=== PATIENT | female | born 1960 | race Caucasian/White ===

== ENCOUNTER 2016-03-27 15:46 | Observation (INO) ==
[2016-03-27] MEDS ORDERED: *HR* Adenosine 6 MG/2 ML VIAL IVP ONE (16:03)
[2016-03-27] MEDS ORDERED: 0.9 % Sodium Chloride 1,000 ML IV ONE (16:03)
[2016-03-27 16:36] LABS: Bilirubin,Urine Negative (Negative); Blood,Urine Negative (Negative); Clarity,Urine Clear (Clear); Color,Urine Yellow (Yellow); Glucose,Urine (UA) Normal (Normal); Ketones,Urine Negative (Negative); Leukocyte Esterase,Urine Negative (Negative); Nitrite,Urine Negative (Negative); PH,Urine 6.5 pH Units (5.0-8.0); Protein,Urine Negative (Neg-Trace); Specific Gravity,Urine 1.005 (1.010-1.025); Urobilinogen,Urine Normal (Normal)
[2016-03-27 16:39] LABS: Basophils % 0.3 %; Eosinophils # 0.1 K/mcL (0.0-0.6); Hematocrit 47.9 % (35.3-44.9); Hemoglobin 15.5 g/dL (11.5-15.4); Immature Granulocytes % 0.6 % (0-4); Lymphocytes % 30.7 %; Mean Corpuscular HGB Conc 32.4 g/dL (31.6-35.5); Mean Corpuscular Hemoglobin 29.2 pg (28.0-33.3); Mean Corpuscular Volume 90.2 fL (83.0-100.0); Mean Platelet Volume 11.7 fL (9.4-12.4); Monocytes # 0.7 K/mcL (0.0-1.3); Monocytes % 6.8 %; Neutrophils # 5.9 K/mcL (1.6-8.9); Platelet Count 264 K/mcL (140-400); Red Blood Count 5.31 M/mcL (3.82-4.97); Red Cell Distribution Width 13.3 % (11.5-14.5); Segmented Neutrophils % 60.6 %
[2016-03-27 16:39] LABS: Amphetamine Screen,Urine Negative ng/mL (Cutoff=1000); Barbiturate Screen,Urine Negative ng/mL (Cutoff=200); Benzodiazepines Screen,Urine Negative ng/mL (Cutoff=200); Cannabinoid Screen,Urine Negative ng/mL (Cutoff = 50); Cocaine Screen,Urine Negative ng/mL (Cutoff= 300); Opiate Screen,Urine Negative ng/mL (Cutoff=300); Phencyclidine Screen,Urine Negative ng/mL (Cutoff=25)
[2016-03-27 16:48] LABS: BUN/Creatinine Ratio 19 (6-26); Blood Urea Nitrogen 14 mg/dL (7-20); Calcium 9.3 mg/dL (8.6-10.8); Carbon Dioxide 24 mEq/L (19-29); Chloride 113 mEq/L (98-109); Glucose 81 mg/dL (70-99); INR 1.1; Osmolality,Calculated 298 (280-300); Potassium 3.7 mEq/L (3.5-4.5); Prothrombin Time 12.4 Seconds (9.4-12.1); Sodium 144 mEq/L (136-145); eGFR For African Americans > 60 (> 60); eGFR For Non-African Americans > 60 (> 60)
[2016-03-27 17:11] LABS: Thyroid Stimulating Hormone 1.467 mcIU/mL (0.350-4.840)
--- NOTE | 2016-03-27 18:45 | Emergency Department Note ---
Disposition Clinical Impression: Supraventricular tachycardia Disposition: Home, Self-Care Condition: Good Instructions: Supraventricular Tachycardia (ED) Prescriptions: Metoprolol XL (24 HR) Succ [Toprol XL] 25 mg PO DAILY #14 tab.er.24h Referrals: Yumiko Bowers DO [Partnered Physician] - (call for appointment tomorrow morning for later in the week.) Forms: ED Satisfaction Letter Arrhythmia/Palpitations HPI - General Chief Complaint: ED Arrhythmia/Palpitations Stated Complaint: SVT Time Seen by Provider: 03/27/16 16:01 Source: patient, EMS Limitations: no limitations Nursing Notes Reviewed: Yes Vital Signs Reviewed: Yes - History of Present Illness HPI Narrative: Patient brought in by EMS for evaluation of heart rate of 200. Patient was at [facility] walking around when she had sudden onset palpitations and shortness of breath. Patient has a history of COPD and previous lung cancer that underwent resection in 2013. Patient has been asymptomatic until initial onset of symptoms. Patient has never had anything like this before and has no family history of abnormal heart rhythms. When patient arrived she was alert and oriented 3 able to handle conversations appropriately. Patient did complain of tiredness and shortness of breath. Patient denied chest pain or other review of systems. - Related Data Previous Rx's Medication Instructions Recorded Amoxicillin/Clavulanate [Augmentin] 875 mg PO BIDWM 5 Days 06/04/15 Metoprolol XL (24 HR) Succ [Toprol 25 mg PO DAILY #14 tab.er.24h 03/27/16 XL] Allergies Allergy/AdvReac Type Severity Reaction Status Date / Time Erythromycin Base AdvReac Rash Verified 11/14/14 09:44 All systems ED: reviewed and negative except as stated. Constitutional: Reports: weakness. Denies: fever, chills Eyes: Denies: eye pain ENT ED: Denies: congestion Cardiovascular: Reports: palpitations, dyspnea on exertion. Denies: chest pain , syncope Respiratory: Denies: cough, dyspnea Gastrointestinal: Denies: abdominal pain, nausea, vomiting Genitourinary: Denies: urgency, dysuria Musculoskeletal: Denies: back pain Integumentary: Denies: rash, abrasion Neurological: Denies: headache Psychiatric: Reports: anxiety Endocrine: Reports: fatigue Past Medical History - Past Medical History Medical history: Reports: no medical history, cancer, COPD, other Surgical history: Reports: cholecystectomy, hysterectomy, other Psychiatric history: Reports: no psych history - Social History Smoking Status: Former smoker Smokeless Tobacco Status: No Alcohol use: Reports: none Drug use: Reports: none Physical Exam - General Limitations: no limitations General appearance: alert - Head Head exam: atraumatic, normocephalic, normal inspection - Eye Eye exam: Present: normal appearance - ENT ENT exam: normal exam - Neck Neck exam: Present: normal inspection - Chest Chest inspection: Present: normal inspection, symmetric chest wall rise. Absent : tenderness - Respiratory Respiratory exam: Present: normal lung sounds bilaterally. Absent: respiratory distress - Cardiovascular Cardiovascular exam: Present: tachycardia, other (SVT) - Abdominal Exam Abdominal exam: Present: soft, Non-Tender. Absent: tenderness, distention, guarding, rebound, rigidity - Extremities Exam Extremities exam: Present: normal inspection - Back Exam Back exam: Present: normal inspection. Absent: tenderness - Neurological Exam Neurological exam: Present: alert, oriented X3, CN II-XII intact - Psychiatric Psychiatric exam: Present: normal affect, normal mood Course - Reevaluation(s) Reevaluation #1: Patient converted with 12 of adenosine as initial dose. Patient received fluids for tachycardia. Lab workup negative at this time. Patient states she just feels tired but otherwise feels back to normal with no palpitations. No shortness of breath no chest pain. Discussed with cardiology Dr. Bowers. Patient will be a follow-up later this week for outpatient evaluation if repeat troponin is negative. To receive Toprol 25 mg daily as a home medication f blood pressure tolerates. Reevaluation #2: Patient signed out to night team. Pending a negative repeat troponin patient's follow-up with cardiology and prescription are printed and available. If patient has a positive troponin the patient will be admitted to the hospitalist service for further workup per cardiology. - Consultations Consultation #1: Discussed with cardiology Dr. Bowers. Patient will be a follow-up later this week for outpatient evaluation if repeat troponin is negative. To receive Toprol 25 mg daily as a home medication f blood pressure tolerates. Vital Signs Temperature 97.3 F L 03/27/16 15:48 Pulse Rate 202 03/27/16 15:48 Respiratory Rate 18 03/27/16 15:48 Blood Pressure 88/60 03/27/16 15:48 O2 Sat by Pulse Oximetry 100 03/27/16 15:48 Temperature 97.3 F L 03/27/16 15:48 Pulse Rate 97 03/27/16 18:00 Respiratory Rate 18 03/27/16 18:00 Blood Pressure 127/87 03/27/16 18:00 O2 Sat by Pulse Oximetry 98 03/27/16 18:00 Oxygen Delivery Oxygen Delivery Room Air Arrhythmia/Palpitations - Medical Records Medical records reviewed: Yes I reviewed the patient's medical records. - Lab Data Lab results reviewed: Yes I reviewed the patient's lab results. Result diagrams: 03/27/16 16:30 03/27/16 16:30 Lab Results 03/27/16 03/27/16 03/27/16 Range/Units 16:10 16:10 16:30 WBC 9.8 (4.3-11.1) K/mcL RBC 5.31 H (3.82-4.97) M/mcL Hgb 15.5 H (11.5-15.4) g/dL Hct 47.9 H (35.3-44.9) % MCV 90.2 (83.0-100.0) fL MCH 29.2 (28.0-33.3) pg MCHC 32.4 (31.6-35.5) g/dL RDW 13.3 (11.5-14.5) % Plt Count 264 (140-400) K/mcL MPV 11.7 (9.4-12.4) fL Immature Gran % 0.6 (0-4) % Seg Neutrophils % 60.6 % Lymphocytes % 30.7 % Monocytes % 6.8 % Eosinophils % 1.0 % Basophils % 0.3 % Neutrophils # 5.9 (1.6-8.9) K/mcL Lymphocytes # 3.0 (0.6-4.6) K/mcL Monocytes # 0.7 (0.0-1.3) K/mcL Eosinophils # 0.1 (0.0-0.6) K/mcL Basophils # 0.0 (0.0-0.2) K/mcL PT (9.4-12.1) Seconds INR D-Dimer (0-500) ng/mLFEU Sodium (136-145) mEq/L Potassium (3.5-4.5) mEq/L Chloride (98-109) mEq/L Carbon Dioxide (19-29) mEq/L BUN (7-20) mg/dL Creatinine (0.57-1.11) mg/dL Est GFR ( Amer) (> 60) Est GFR (Non-Af Amer) (> 60) BUN/Creatinine Ratio (6-26) Glucose (70-99) mg/dL Calculated Osmolality (280-300) Calcium (8.6-10.8) mg/dL Troponin I (0-0.03) ng/mL TSH (0.350-4.840) mcIU/mL Urine Color Yellow (Yellow) Urine Clarity Clear (Clear) Urine pH 6.5 (5.0-8.0) pH Units Ur Specific [place] 1.005 L (1.010-1.025) Urine Protein Negative (Neg-Trace) mg/dL Urine Glucose (UA) Normal (Normal) mg/dL Urine Ketones Negative (Negative) mg/dL Urine Blood Negative (Negative) Urine Nitrite Negative (Negative) Urine Bilirubin Negative (Negative) Urine Urobilinogen Normal (Normal) mg/dL Ur Leukocyte Esterase Negative (Negative) Ur Culture Indicated? NO (NO) Urine Opiates Screen Negative (Tyivvr=825) ng/mL Ur Barbiturates Screen Negative (Gzzrkv=491) ng/mL Ur Phencyclidine Scrn Negative (Cutoff=25) ng/mL Ur Amphetamines Screen Negative (Egjgla=5787) ng/mL U Benzodiazepines Scrn Negative (Jjpgbg=992) ng/mL Urine Cocaine Screen Negative (Cutoff= 300) ng/mL U Marijuana (THC) Screen Negative (Cutoff = 50) ng/mL 03/27/16 03/27/16 03/27/16 Range/Units 16:30 16:30 16:30 WBC (4.3-11.1) K/mcL RBC (3.82-4.97) M/mcL Hgb (11.5-15.4) g/dL Hct (35.3-44.9) % MCV (83.0-100.0) fL MCH (28.0-33.3) pg MCHC (31.6-35.5) g/dL RDW (11.5-14.5) % Plt Count (140-400) K/mcL MPV (9.4-12.4) fL Immature Gran % (0-4) % Seg Neutrophils % % Lymphocytes % % Monocytes % % Eosinophils % % Basophils % % Neutrophils # (1.6-8.9) K/mcL Lymphocytes # (0.6-4.6) K/mcL Monocytes # (0.0-1.3) K/mcL Eosinophils # (0.0-0.6) K/mcL Basophils # (0.0-0.2) K/mcL PT 12.4 H (9.4-12.1) Seconds INR 1.1 D-Dimer 345 (0-500) ng/mLFEU Sodium 144 (136-145) mEq/L Potassium 3.7 (3.5-4.5) mEq/L Chloride 113 H (98-109) mEq/L Carbon Dioxide 24 (19-29) mEq/L BUN 14 (7-20) mg/dL Creatinine 0.72 (0.57-1.11) mg/dL Est GFR ( Amer) > 60 (> 60) Est GFR (Non-Af Amer) > 60 (> 60) BUN/Creatinine Ratio 19 (6-26) Glucose 81 (70-99) mg/dL Calculated Osmolality 298 (280-300) Calcium 9.3 (8.6-10.8) mg/dL Troponin I 0.01 (0-0.03) ng/mL TSH 1.467 (0.350-4.840) mcIU/mL Urine Color (Yellow) Urine Clarity (Clear) Urine pH (5.0-8.0) pH Units Ur Specific [place] (1.010-1.025) Urine Protein (Neg-Trace) mg/dL Urine Glucose (UA) (Normal) mg/dL Urine Ketones (Negative) mg/dL Urine Blood (Negative) Urine Nitrite (Negative) Urine Bilirubin (Negative) Urine Urobilinogen (Normal) mg/dL Ur Leukocyte Esterase (Negative) Ur Culture Indicated? (NO) Urine Opiates Screen (Jdxcfd=855) ng/mL Ur Barbiturates Screen (Tgxhnz=623) ng/mL Ur Phencyclidine Scrn (Cutoff=25) ng/mL Ur Amphetamines Screen (Gwugyx=6327) ng/mL U Benzodiazepines Scrn (Kjbnhr=449) ng/mL Urine Cocaine Screen (Cutoff= 300) ng/mL U Marijuana (THC) Screen (Cutoff = 50) ng/mL - Radiology Data Radiology results reviewed: Yes I reviewed the patient's radiology results. - EKG Data EKG attestation: Yes I reviewed and interpreted this EKG. EKG results narrative: Initial EKG #1 shows supraventricular tachycardia at a rate of 198 bpm. QRS 85. QTC 3-4. Patient has depressions in the anterior leads. EKG #2 after 12 adenosine shows sinus tachycardia with ventricular rate of 108. [place] 163. QRS 84. QTC 388. Patient has no ST elevations or depressions.
--- NOTE | 2016-03-27 18:46 | Emergency Department Note ---
Disposition Clinical Impression: Supraventricular tachycardia Disposition: Admitted As Inpatient Condition: Good General Adult HPI - General Chief complaint: ED Arrhythmia/Palpitations Stated complaint: SVT Time Seen by Provider: 03/27/16 16:01 Source: patient, EMS Limitations: no limitations - History of Present Illness Pain Scale: 0 - Related Data Previous Rx's Medication Instructions Recorded Diltiazem CD (24hr) [Cardizem CD] 120 mg PO DAILY #30 cap.er.24h 03/28/16 Allergies Allergy/AdvReac Type Severity Reaction Status Date / Time Erythromycin Base Allergy Rash Verified 03/27/16 21:14 Past Medical History - Past Medical History Medical history: Reports: no medical history, cancer, COPD, other Surgical history: Reports: cholecystectomy, hysterectomy, other Psychiatric history: Reports: no psych history - Social History Smoking Status: Former smoker Smokeless Tobacco Status: No Alcohol use: Reports: none Drug use: Reports: none Physical Exam - General Limitations: no limitations General appearance: alert Course - Reevaluation(s) Reevaluation #1: I saw the patient with the resident, Dr. Mac. The patient was brought in by squad for an abrupt onset of rapid heart rate 45 minutes prior to arrival to the department. The squad had sent an EKG which we saw was SVT at a rate of 200. It was narrow complex. On arrival the patient maintained at high heart rate. We had an IV which was challenging but successful. 12 Identicard was given after Valsalva maneuvers failed. Patient broke and was in sinus rhythm. Heart rate was still tachycardic but eventually came back down to a normal rate as well as normal rhythm. Lab workup was negative. D-dimer was negative. This also history for SVT without other significant cause. We talked with cardiology and the plan is to repeat the troponin. Troponin is negative then the patient will be discharged to home. If is positive then she will need to be admitted. At this point is the end of our shift so would be turning the case over to the night physician to make that disposition based on the troponin result. She is absolutely stable at this point. Time: 18:46 Vital Signs Temperature 97.3 F L 03/27/16 15:48 Pulse Rate 202 03/27/16 15:48 Respiratory Rate 18 03/27/16 15:48 Blood Pressure 88/60 01/02/17 15:48 O2 Sat by Pulse Oximetry 100 03/27/16 15:48 Temperature 97.8 F 03/28/16 11:11 Pulse Rate 87 03/28/16 11:11 Respiratory Rate 18 03/28/16 11:11 Blood Pressure 143/52 03/28/16 11:11 O2 Sat by Pulse Oximetry 95 03/28/16 11:11 Oxygen Delivery Oxygen Delivery Room Air Medical Decision Making - Lab Data Result diagrams: 03/28/16 01:00 03/28/16 01:00 Lab Results 03/27/16 03/27/16 03/27/16 Range/Units 16:10 16:10 16:30 WBC 9.8 (4.3-11.1) K/mcL RBC 5.31 H (3.82-4.97) M/mcL Hgb 15.5 H (11.5-15.4) g/dL Hct 47.9 H (35.3-44.9) % MCV 90.2 (83.0-100.0) fL MCH 29.2 (28.0-33.3) pg MCHC 32.4 (31.6-35.5) g/dL RDW 13.3 (11.5-14.5) % Plt Count 264 (140-400) K/mcL MPV 11.7 (9.4-12.4) fL Immature Gran % 0.6 (0-4) % Seg Neutrophils % 60.6 % Lymphocytes % 30.7 % Monocytes % 6.8 % Eosinophils % 1.0 % Basophils % 0.3 % Neutrophils # 5.9 (1.6-8.9) K/mcL Lymphocytes # 3.0 (0.6-4.6) K/mcL Monocytes # 0.7 (0.0-1.3) K/mcL Eosinophils # 0.1 (0.0-0.6) K/mcL Basophils # 0.0 (0.0-0.2) K/mcL PT (9.4-12.1) Seconds INR D-Dimer (0-500) ng/mLFEU Sodium (136-145) mEq/L Potassium (3.5-4.5) mEq/L Chloride (98-109) mEq/L Carbon Dioxide (19-29) mEq/L BUN (7-20) mg/dL Creatinine (0.57-1.11) mg/dL Est GFR ( Amer) (> 60) Est GFR (Non-Af Amer) (> 60) BUN/Creatinine Ratio (6-26) Glucose (70-99) mg/dL Calculated Osmolality (280-300) Calcium (8.6-10.8) mg/dL Troponin I (0-0.03) ng/mL TSH (0.350-4.840) mcIU/mL Urine Color Yellow (Yellow) Urine Clarity Clear (Clear) Urine pH 6.5 (5.0-8.0) pH Units Ur Specific [place] 1.005 L (1.010-1.025) Urine Protein Negative (Neg-Trace) mg/dL Urine Glucose (UA) Normal (Normal) mg/dL Urine Ketones Negative (Negative) mg/dL Urine Blood Negative (Negative) Urine Nitrite Negative (Negative) Urine Bilirubin Negative (Negative) Urine Urobilinogen Normal (Normal) mg/dL Ur Leukocyte Esterase Negative (Negative) Ur Culture Indicated? NO (NO) Urine Opiates Screen Negative (Qlacwe=116) ng/mL Ur Barbiturates Screen Negative (Nqcewo=013) ng/mL Ur Phencyclidine Scrn Negative (Cutoff=25) ng/mL Ur Amphetamines Screen Negative (Aikmgt=6034) ng/mL U Benzodiazepines Scrn Negative (Qocmou=266) ng/mL Urine Cocaine Screen Negative (Cutoff= 300) ng/mL U Marijuana (THC) Screen Negative (Cutoff = 50) ng/mL 03/27/16 03/27/16 03/27/16 Range/Units 16:30 16:30 16:30 WBC (4.3-11.1) K/mcL RBC (3.82-4.97) M/mcL Hgb (11.5-15.4) g/dL Hct (35.3-44.9) % MCV (83.0-100.0) fL MCH (28.0-33.3) pg MCHC (31.6-35.5) g/dL RDW (11.5-14.5) % Plt Count (140-400) K/mcL MPV (9.4-12.4) fL Immature Gran % (0-4) % Seg Neutrophils % % Lymphocytes % % Monocytes % % Eosinophils % % Basophils % % Neutrophils # (1.6-8.9) K/mcL Lymphocytes # (0.6-4.6) K/mcL Monocytes # (0.0-1.3) K/mcL Eosinophils # (0.0-0.6) K/mcL Basophils # (0.0-0.2) K/mcL PT 12.4 H (9.4-12.1) Seconds INR 1.1 D-Dimer 345 (0-500) ng/mLFEU Sodium 144 (136-145) mEq/L Potassium 3.7 (3.5-4.5) mEq/L Chloride 113 H (98-109) mEq/L Carbon Dioxide 24 (19-29) mEq/L BUN 14 (7-20) mg/dL Creatinine 0.72 (0.57-1.11) mg/dL Est GFR ( Amer) > 60 (> 60) Est GFR (Non-Af Amer) > 60 (> 60) BUN/Creatinine Ratio 19 (6-26) Glucose 81 (70-99) mg/dL Calculated Osmolality 298 (280-300) Calcium 9.3 (8.6-10.8) mg/dL Troponin I 0.01 (0-0.03) ng/mL TSH 1.467 (0.350-4.840) mcIU/mL Urine Color (Yellow) Urine Clarity (Clear) Urine pH (5.0-8.0) pH Units Ur Specific [place] (1.010-1.025) Urine Protein (Neg-Trace) mg/dL Urine Glucose (UA) (Normal) mg/dL Urine Ketones (Negative) mg/dL Urine Blood (Negative) Urine Nitrite (Negative) Urine Bilirubin (Negative) Urine Urobilinogen (Normal) mg/dL Ur Leukocyte Esterase (Negative) Ur Culture Indicated? (NO) Urine Opiates Screen (Lbacjx=028) ng/mL Ur Barbiturates Screen (Qxevov=099) ng/mL Ur Phencyclidine Scrn (Cutoff=25) ng/mL Ur Amphetamines Screen (Kcmwbs=3898) ng/mL U Benzodiazepines Scrn (Aodrdl=944) ng/mL Urine Cocaine Screen (Cutoff= 300) ng/mL U Marijuana (THC) Screen (Cutoff = 50) ng/mL 03/27/16 Range/Units 19:49 WBC (4.3-11.1) K/mcL RBC (3.82-4.97) M/mcL Hgb (11.5-15.4) g/dL Hct (35.3-44.9) % MCV (83.0-100.0) fL MCH (28.0-33.3) pg MCHC (31.6-35.5) g/dL RDW (11.5-14.5) % Plt Count (140-400) K/mcL MPV (9.4-12.4) fL Immature Gran % (0-4) % Seg Neutrophils % % Lymphocytes % % Monocytes % % Eosinophils % % Basophils % % Neutrophils # (1.6-8.9) K/mcL Lymphocytes # (0.6-4.6) K/mcL Monocytes # (0.0-1.3) K/mcL Eosinophils # (0.0-0.6) K/mcL Basophils # (0.0-0.2) K/mcL PT (9.4-12.1) Seconds INR D-Dimer (0-500) ng/mLFEU Sodium (136-145) mEq/L Potassium (3.5-4.5) mEq/L Chloride (98-109) mEq/L Carbon Dioxide (19-29) mEq/L BUN (7-20) mg/dL Creatinine (0.57-1.11) mg/dL Est GFR ( Amer) (> 60) Est GFR (Non-Af Amer) (> 60) BUN/Creatinine Ratio (6-26) Glucose (70-99) mg/dL Calculated Osmolality (280-300) Calcium (8.6-10.8) mg/dL Troponin I 0.04 H* (0-0.03) ng/mL TSH (0.350-4.840) mcIU/mL Urine Color (Yellow) Urine Clarity (Clear) Urine pH (5.0-8.0) pH Units Ur Specific [place] (1.010-1.025) Urine Protein (Neg-Trace) mg/dL Urine Glucose (UA) (Normal) mg/dL Urine Ketones (Negative) mg/dL Urine Blood (Negative) Urine Nitrite (Negative) Urine Bilirubin (Negative) Urine Urobilinogen (Normal) mg/dL Ur Leukocyte Esterase (Negative) Ur Culture Indicated? (NO) Urine Opiates Screen (Bbihhg=132) ng/mL Ur Barbiturates Screen (Wchytn=108) ng/mL Ur Phencyclidine Scrn (Cutoff=25) ng/mL Ur Amphetamines Screen (Vhdspg=4460) ng/mL U Benzodiazepines Scrn (Tlghsu=411) ng/mL Urine Cocaine Screen (Cutoff= 300) ng/mL U Marijuana (THC) Screen (Cutoff = 50) ng/mL Attestation Statement - Attestation Attestation: I , Dr. Murdock, examined this patient face to face and my medical decision- making was reviewed with Dr. Mac, Resident Physician. I agree with the documented findings, disposition and treatment plan as described except to the extent set forth below. Please see my progress notes for details.
--- NOTE | 2016-03-27 20:34 | Emergency Department Note ---
Disposition Clinical Impression: Supraventricular tachycardia Disposition: Admitted As Inpatient Condition: Good Time of Disposition: 21:02 Arrhythmia/Palpitations HPI - General Chief Complaint: ED Arrhythmia/Palpitations Stated Complaint: SVT Time Seen by Provider: 03/27/16 16:01 Source: patient, EMS Limitations: no limitations Nursing Notes Reviewed: Yes Vital Signs Reviewed: Yes - Related Data Home Medications Medication Instructions Recorded Confirmed No Known Home Drugs 03/27/16 03/27/16 Allergies Allergy/AdvReac Type Severity Reaction Status Date / Time Erythromycin Base Allergy Rash Verified 03/27/16 21:14 Constitutional: Reports: weakness. Denies: fever, chills Eyes: Denies: eye pain ENT ED: Denies: congestion Cardiovascular: Reports: palpitations, dyspnea on exertion. Denies: chest pain , syncope Respiratory: Denies: cough, dyspnea Gastrointestinal: Denies: abdominal pain, nausea, vomiting Genitourinary: Denies: urgency, dysuria Musculoskeletal: Denies: back pain Integumentary: Denies: rash, abrasion Neurological: Denies: headache Psychiatric: Reports: anxiety Endocrine: Reports: fatigue Past Medical History - Past Medical History Medical history: Reports: no medical history, cancer, COPD, other Surgical history: Reports: cholecystectomy, hysterectomy, other Psychiatric history: Reports: no psych history - Social History Smoking Status: Former smoker Smokeless Tobacco Status: No Alcohol use: Reports: none Drug use: Reports: none Physical Exam - General Limitations: no limitations General appearance: alert Course - Consultations Consultation #1: Carolin ECHEVARRIA admitting Pt in stable condition. Time: 20:53 Vital Signs Temperature 97.3 F L 03/27/16 15:48 Pulse Rate 202 03/27/16 15:48 Respiratory Rate 18 03/27/16 15:48 Blood Pressure 88/60 03/27/16 15:48 O2 Sat by Pulse Oximetry 100 03/27/16 15:48 Temperature 97.4 F L 03/28/16 03:29 Pulse Rate 80 03/28/16 03:29 Respiratory Rate 15 03/28/16 03:29 Blood Pressure 127/79 03/28/16 03:29 O2 Sat by Pulse Oximetry 97 03/28/16 03:29 Oxygen Delivery Oxygen Delivery Room Air Arrhythmia/Palpitations - MDM Narrative Medical decision making narrative: Patient was signed out to me by Dr. Mac. She was initially seen in the emergency department for SVT in the over 200 range. She was successfully converted with 12 mg of Adenocard. Patient states that her symptoms started after she got to her car after she was shopping at [employer]. She then went to her primary care physician because she had an appointment. She was then transferred to the emergency room by linda. Patient is resting comfortably in bed at this time. She is denying any chest pain. However she did have an episode of chest pain while she has been here. She states that it was a pressure on the right side of her chest that quickly resolved. She states it lasted less than 1 minute. She was drinking hot chocolate at the time of my assessment. She has been informed that she is not supposed to have caffeine at this time. Patient's troponin came back elevated at 0.04. We will admit her for cardiac evaluation. Patient is agreeable and understands plan. - Medical Records Medical records reviewed: Yes I reviewed the patient's medical records. - Lab Data Lab results reviewed: Yes I reviewed the patient's lab results. Result diagrams: 03/28/16 01:00 03/28/16 01:00 Lab Results 03/27/16 03/27/16 03/27/16 Range/Units 16:10 16:10 16:30 WBC 9.8 (4.3-11.1) K/mcL RBC 5.31 H (3.82-4.97) M/mcL Hgb 15.5 H (11.5-15.4) g/dL Hct 47.9 H (35.3-44.9) % MCV 90.2 (83.0-100.0) fL MCH 29.2 (28.0-33.3) pg MCHC 32.4 (31.6-35.5) g/dL RDW 13.3 (11.5-14.5) % Plt Count 264 (140-400) K/mcL MPV 11.7 (9.4-12.4) fL Immature Gran % 0.6 (0-4) % Seg Neutrophils % 60.6 % Lymphocytes % 30.7 % Monocytes % 6.8 % Eosinophils % 1.0 % Basophils % 0.3 % Neutrophils # 5.9 (1.6-8.9) K/mcL Lymphocytes # 3.0 (0.6-4.6) K/mcL Monocytes # 0.7 (0.0-1.3) K/mcL Eosinophils # 0.1 (0.0-0.6) K/mcL Basophils # 0.0 (0.0-0.2) K/mcL PT (9.4-12.1) Seconds INR D-Dimer (0-500) ng/mLFEU Sodium (136-145) mEq/L Potassium (3.5-4.5) mEq/L Chloride (98-109) mEq/L Carbon Dioxide (19-29) mEq/L BUN (7-20) mg/dL Creatinine (0.57-1.11) mg/dL Est GFR ( Amer) (> 60) Est GFR (Non-Af Amer) (> 60) BUN/Creatinine Ratio (6-26) Glucose (70-99) mg/dL Calculated Osmolality (280-300) Calcium (8.6-10.8) mg/dL Troponin I (0-0.03) ng/mL TSH (0.350-4.840) mcIU/mL Urine Color Yellow (Yellow) Urine Clarity Clear (Clear) Urine pH 6.5 (5.0-8.0) pH Units Ur Specific [place] 1.005 L (1.010-1.025) Urine Protein Negative (Neg-Trace) mg/dL Urine Glucose (UA) Normal (Normal) mg/dL Urine Ketones Negative (Negative) mg/dL Urine Blood Negative (Negative) Urine Nitrite Negative (Negative) Urine Bilirubin Negative (Negative) Urine Urobilinogen Normal (Normal) mg/dL Ur Leukocyte Esterase Negative (Negative) Ur Culture Indicated? NO (NO) Urine Opiates Screen Negative (Bbigra=075) ng/mL Ur Barbiturates Screen Negative (Urwuoo=765) ng/mL Ur Phencyclidine Scrn Negative (Cutoff=25) ng/mL Ur Amphetamines Screen Negative (Yposzy=5258) ng/mL U Benzodiazepines Scrn Negative (Ilteat=417) ng/mL Urine Cocaine Screen Negative (Cutoff= 300) ng/mL U Marijuana (THC) Screen Negative (Cutoff = 50) ng/mL 03/27/16 03/27/16 03/27/16 Range/Units 16:30 16:30 16:30 WBC (4.3-11.1) K/mcL RBC (3.82-4.97) M/mcL Hgb (11.5-15.4) g/dL Hct (35.3-44.9) % MCV (83.0-100.0) fL MCH (28.0-33.3) pg MCHC (31.6-35.5) g/dL RDW (11.5-14.5) % Plt Count (140-400) K/mcL MPV (9.4-12.4) fL Immature Gran % (0-4) % Seg Neutrophils % % Lymphocytes % % Monocytes % % Eosinophils % % Basophils % % Neutrophils # (1.6-8.9) K/mcL Lymphocytes # (0.6-4.6) K/mcL Monocytes # (0.0-1.3) K/mcL Eosinophils # (0.0-0.6) K/mcL Basophils # (0.0-0.2) K/mcL PT 12.4 H (9.4-12.1) Seconds INR 1.1 D-Dimer 345 (0-500) ng/mLFEU Sodium 144 (136-145) mEq/L Potassium 3.7 (3.5-4.5) mEq/L Chloride 113 H (98-109) mEq/L Carbon Dioxide 24 (19-29) mEq/L BUN 14 (7-20) mg/dL Creatinine 0.72 (0.57-1.11) mg/dL Est GFR ( Amer) > 60 (> 60) Est GFR (Non-Af Amer) > 60 (> 60) BUN/Creatinine Ratio 19 (6-26) Glucose 81 (70-99) mg/dL Calculated Osmolality 298 (280-300) Calcium 9.3 (8.6-10.8) mg/dL Troponin I 0.01 (0-0.03) ng/mL TSH 1.467 (0.350-4.840) mcIU/mL Urine Color (Yellow) Urine Clarity (Clear) Urine pH (5.0-8.0) pH Units Ur Specific [place] (1.010-1.025) Urine Protein (Neg-Trace) mg/dL Urine Glucose (UA) (Normal) mg/dL Urine Ketones (Negative) mg/dL Urine Blood (Negative) Urine Nitrite (Negative) Urine Bilirubin (Negative) Urine Urobilinogen (Normal) mg/dL Ur Leukocyte Esterase (Negative) Ur Culture Indicated? (NO) Urine Opiates Screen (Rlfpuj=543) ng/mL Ur Barbiturates Screen (Crsqlq=273) ng/mL Ur Phencyclidine Scrn (Cutoff=25) ng/mL Ur Amphetamines Screen (Snkwew=0049) ng/mL U Benzodiazepines Scrn (Kpoxff=244) ng/mL Urine Cocaine Screen (Cutoff= 300) ng/mL U Marijuana (THC) Screen (Cutoff = 50) ng/mL 03/27/16 Range/Units 19:49 WBC (4.3-11.1) K/mcL RBC (3.82-4.97) M/mcL Hgb (11.5-15.4) g/dL Hct (35.3-44.9) % MCV (83.0-100.0) fL MCH (28.0-33.3) pg MCHC (31.6-35.5) g/dL RDW (11.5-14.5) % Plt Count (140-400) K/mcL MPV (9.4-12.4) fL Immature Gran % (0-4) % Seg Neutrophils % % Lymphocytes % % Monocytes % % Eosinophils % % Basophils % % Neutrophils # (1.6-8.9) K/mcL Lymphocytes # (0.6-4.6) K/mcL Monocytes # (0.0-1.3) K/mcL Eosinophils # (0.0-0.6) K/mcL Basophils # (0.0-0.2) K/mcL PT (9.4-12.1) Seconds INR D-Dimer (0-500) ng/mLFEU Sodium (136-145) mEq/L Potassium (3.5-4.5) mEq/L Chloride (98-109) mEq/L Carbon Dioxide (19-29) mEq/L BUN (7-20) mg/dL Creatinine (0.57-1.11) mg/dL Est GFR ( Amer) (> 60) Est GFR (Non-Af Amer) (> 60) BUN/Creatinine Ratio (6-26) Glucose (70-99) mg/dL Calculated Osmolality (280-300) Calcium (8.6-10.8) mg/dL Troponin I 0.04 H* (0-0.03) ng/mL TSH (0.350-4.840) mcIU/mL Urine Color (Yellow) Urine Clarity (Clear) Urine pH (5.0-8.0) pH Units Ur Specific [place] (1.010-1.025) Urine Protein (Neg-Trace) mg/dL Urine Glucose (UA) (Normal) mg/dL Urine Ketones (Negative) mg/dL Urine Blood (Negative) Urine Nitrite (Negative) Urine Bilirubin (Negative) Urine Urobilinogen (Normal) mg/dL Ur Leukocyte Esterase (Negative) Ur Culture Indicated? (NO) Urine Opiates Screen (Vmoqor=869) ng/mL Ur Barbiturates Screen (Ltiscu=832) ng/mL Ur Phencyclidine Scrn (Cutoff=25) ng/mL Ur Amphetamines Screen (Bhpjmn=9372) ng/mL U Benzodiazepines Scrn (Toovkp=998) ng/mL Urine Cocaine Screen (Cutoff= 300) ng/mL U Marijuana (THC) Screen (Cutoff = 50) ng/mL - EKG Data EKG attestation: Yes I reviewed and interpreted this EKG. Attestation Statement - Attestation Attestation: For this encounter, I have reviewed the resident, [employer], or PA documentation, treatment plan, and medical decision making; and I have had face to face time with this patient. 55-year-old female received in signout from Dr. Murdock pending repeat troponin and disposition. Patient initially presented in SVT and was converted with adenosine. Patient has remained in a sinus rhythm since that time and does not have chest pain during my reevaluation. Dr. Murdock had spoken with the clinical nursing intern who recommended repeat troponin and admission if positive. Repeat troponin returned elevated. Patient feels comfortable with plan for admission to the hospital for continued care and evaluation of her SVT. Vital signs stable prior to departure.
[2016-03-27] MEDS ORDERED: Naloxone 0.4 MG/ML INJ IVP PRN (22:02)
[2016-03-27] MEDS ORDERED: Acetaminophen 325 MG TABLET PO PRN (22:02)
[2016-03-27] MEDS ORDERED: Ondansetron 4 MG/2 ML VIAL IVP PRN (22:02)
--- NOTE | 2016-03-27 22:52 | Internal Med History&Physical ---
Date of Encounter: 03/27/16 Time of Encounter: 22:30 Assessment and Plan (1) Supraventricular tachycardia Current visit: Yes Status: Acute 1 patient presented with heart rate 200 narrow complex tachycardia she was given adenosine and converted back to sinus rhythm. No cardiac history. TSH normal denies any drug use and electrolytes within normal limits Second troponin elevated .04. We will place on continuous cardiac monitoring 2 we will monitor electrolytes 3 cycle cardiac troponins 4 we will obtain echo 5 consult cardiology 6 avoid stimulants no caffeine (2) Elevated troponin Current visit: Yes Status: Acute 1 patient has had episode of SVT. Second troponin elevated 0.04 we will continue to cycle cardiac troponins. Continuous cardiac monitoring presently chest pain-free 2 we will obtain cardiac echo 3 consult cardiology (3) DVT prophylaxis Current visit: Yes Status: Acute 1 heparin subcutaneous (4) Tobacco abuse Current visit: Yes Status: Acute Urged patient to stop smoking offered nicotine patch which patient declined Internal Medicine - H&P: HPI Chief complaint: SVT Admitted From: Home Plans for Post Hospital Care: Home History of present illness: Ms. Gar is a 55 year old female past history of lung CA with left lobectomy hypertension tobacco use. According to patient she was out shopping today as she was walking to her car she experienced increasing shortness of breath and lightheadedness with chest pressure that initiated in her throat and radiated to her right chest. She had a scheduled appointment with her primary care physician she drove to her primary care office explained that she was having chest pressure. She was given 4 baby aspirin and sent to the ER via EMS. According to ER records During transport it was noticed that the patient was in narrow complex tachycardia heart rate of 200 and systolic blood pressure of 89. Upon arrival to the emergency department the patient's heart rate was 210 with a narrow complex tachycardia she was given 12 mg of adenosine which slowed her heart rate down to 100- sinus tachycardia. The patient denies any drug use she does admit to 2 glasses of caffeine today. Patient does states she has been under a lot of stress she is a current smoker. Chest x-ray was negative for any acute process her electrolytes are within normal limits Troponins were obtained first was negative. ER physician did speak with cardiology who stated to repeat troponins if elevated admit for observation. Second troponin was elevated at 0.04. She was admitted for further workup and evaluation. The patient has been in good health up until today she denies any previous chest pain nausea vomiting diarrhea fevers or chills. She has chronic shortness of breath however she does not use any oxygen. She is prescribed inhalers which she has not used in some time. Presently the patient is chest pain-free denies any shortness of breath she sinus rhythm on the monitor appears to be hemodynamically stable at this time. Past Med Surg Social Fam HX - Past Medical History Medical history: cancer Psychiatric history: no psych history - Past Surgical History Surgical History: cholecystectomy, hysterectomy, other - Social History Smoking Status: Current every day smoker Smokeless Tobacco Status: No Alcohol use: none Drug use: none - Family History Mother Adopted: No Family Member Ethnicity: Non- Living Status: Still Living Hx Family Cardiac Disorders: No Hx Family Respiratory Disorders: No Hx Family Cancer: Yes Hx Family GI Disorders: No Hx Family Endocrine Disorder: No Hx Family Neuromuscular Disorders: No Hx Family Neurologic Disorders: Yes Hx Family HEENT Disorders: No Hx Family Autoimmune Disorders: No Father Adopted: No Family Member Ethnicity: Non- Hx Family Cardiac Disorders: No Hx Family Respiratory Disorders: No Hx Family Cancer: Yes Hx Family GI Disorders: No Hx Family Endocrine Disorder: No Hx Family Neuromuscular Disorders: No Hx Family Neurologic Disorders: No Hx Family HEENT Disorders: No Hx Family Autoimmune Disorders: No Internal Medicine - H&P: Meds No Known Home Drugs 03/27/16 [History] Allergies Erythromycin Base Allergy (Verified 03/27/16 21:14) Rash All Systems PM: A 10-system review of systems was performed and is negative for pertinent findings except as documented above in the HPI. - Constitutional Constitutional: no chills, no fever(s), no night sweats - Cardiovascular Cardiovascular ROS IM: dyspnea on exertion, lightheadedness - Respiratory Respiratory: dyspnea on exertion - Gastrointestinal Gastrointestinal: no abdominal pain, no diarrhea, no hematemesis, no hematochezia, no melena, no nausea, no vomiting - Genitourinary Genitourinary: no change in urinary stream, no dysuria, no flank pain, no hematuria - Musculoskeletal Musculoskeletal ROS IM: no numbness, no tingling - Neurological Neurological ROS: no confusion, no convulsions, no focal weakness, no numbness, no tingling, no tremor(s) - Hematologic/Lymphatic Hematologic/Lymphatic: no easy bruising - Constitutional Vitals: Temp Pulse Resp BP Pulse Ox 0 F L 80 16 139/96 96 03/27/16 20:59 03/27/16 20:59 03/27/16 22:01 03/27/16 22:01 03/27/16 20:59 General appearance: Present: A&O X 3 - Head Head exam: Present: atraumatic, normocephalic - Eye Eye exam: Present: PERRL, conjuntiva pink, sclera anicteric Pupils: Present: PERRL - Respiratory Respiratory exam: Present: CTAB. Absent: accessory muscle use, rales, rhonchi, wheezes - Cardiovascular Cardiovascular exam: Present: RRR, +S1, +S2. Absent: diastolic murmur, gallop, rubs, systolic murmur - GI/Abdominal GI/Abdominal exam: Present: normal bowel sounds, soft, no peritoneal signs. Absent: distended, tenderness - Extremities Exam Extremities exam: Present: warm, radial pulses palpable and symetrical. Absent : calf tenderness, cyanotic, pedal edema - Neurological Exam Neurological exam: Present: CN II-XII intact, oriented X3, no focal deficits. Absent: pronater drift, facial droop, speech deficit - Skin Skin exam: Present: dry, intact Internal Med - H&P Results - Labs CBC & Chem 7: 03/27/16 16:30 03/27/16 16:30 - EKG Data Rate: tachycardia - Diagnostic Studies Chest x-ray Additional comments: Her radiology report there is no acute process
[2016-03-28 01:28] LABS: Basophils % 0.3 %; Eosinophils # 0.2 K/mcL (0.0-0.6); Eosinophils % 1.6 %; Hemoglobin 13.9 g/dL (11.5-15.4); Immature Granulocytes % 0.6 % (0-4); Immature Platelets 7.7 % (1.1-6.1); Lymphocytes % 27.8 %; Mean Corpuscular HGB Conc 33.1 g/dL (31.6-35.5); Mean Corpuscular Hemoglobin 29.6 pg (28.0-33.3); Mean Corpuscular Volume 89.4 fL (83.0-100.0); Mean Platelet Volume 12.7 fL (9.4-12.4); Monocytes # 0.8 K/mcL (0.0-1.3); Monocytes % 7.6 %; Neutrophils # 6.7 K/mcL (1.6-8.9); Nucleated Red Blood Cells 0.6 /100 WBC (0); Platelet Count 209 K/mcL (140-400); Red Cell Distribution Width 13.6 % (11.5-14.5); Segmented Neutrophils % 62.1 %
[2016-03-28 01:31] LABS: BUN/Creatinine Ratio 18 (6-26); Blood Urea Nitrogen 12 mg/dL (7-20); Calcium 8.5 mg/dL (8.6-10.8); Carbon Dioxide 23 mEq/L (19-29); Chloride 113 mEq/L (98-109); Glucose 105 mg/dL (70-99); Osmolality,Calculated 294 (280-300); Sodium 142 mEq/L (136-145); eGFR For African Americans > 60 (> 60); eGFR For Non-African Americans > 60 (> 60)
[2016-03-28 01:32] LABS: Potassium 4.4 mEq/L (3.5-4.5)
[2016-03-28 01:38] LABS: Large Platelets Present (Not Present); Platelet Estimate Normal (Normal); Toxic Granulation Present (Not Present)
[2016-03-28 01:39] LABS: Toxic Vacuolation Present (Not Present)
[2016-03-28] MEDS ORDERED: *HR* Heparin 5,000 UNIT/ML VIAL SQ SCH (06:00)
--- NOTE | 2016-03-28 09:51 | ECHO - Doppler Report ---
Echocardiogram Name: Cesilia Gar Date of Study: 03/28/2016 Date: 1960 Ht: 65.0 in Medical Record#: [id number] Age: 55 Wt: 183.0 lb Gender: Female BSA: 1.9 Order #: [id number] Location: [facility] Room #: [id number] Reading Physician: Omar Chow MD, [facility] Manager Customer Service: Doron Gonzalez RN Ordering Physician: Raine Barnes CNP Primary Physician: Sunny Aguilar M.D. Indications: Arrhythmia, Elevated Troponin Impressions: Normal left ventricular size and systolic function, LVEF 60%. Moderate left ventricular diastolic dysfunction. Normal right ventricular structure and function. Mildly dilated left atrium. Mild mitral regurgitation. No evidence of pulmonary hypertension. Left Ventricular Wall Motion: Rest Echo Findings All wall segments showed normal motion. Findings: Study Quality * Technically adequate exam. ECG Findings * Normal sinus rhythm. Left Ventricle * Normal left ventricular size and systolic function, LVEF 60%. * Normal wall thickness. * Moderate left ventricular diastolic dysfunction. Right Ventricle * Normal right ventricular structure and function. Left Atrium * Mildly dilated left atrium. Right Atrium * Normal right atrial size. Aorta * Normally sized aortic root. Pericardium * There is no pericardial effusion present. IVC * Normal IVC dimensions and inspiratory collapse. Aortic Valve * Trileaflet aortic valve. * No aortic stenosis. * Trace aortic regurgitation. Mitral Valve * Normal mitral valve structure. * No mitral stenosis. * Mild mitral regurgitation. Tricuspid Valve * Normal tricuspid valve structure. * No tricuspid stenosis. * Trace tricuspid regurgitation. * No evidence of pulmonary hypertension. Pulmonic Valve * Pulmonic valve not well visualized. * No pulmonic stenosis. * Trace pulmonic regurgitation. History History of Smoking Years 40 Packs 1 Measurements: BP: 126/ 80 2D Normal Values RVIDd: 2.60 cm IVSd: .80 cm 0.6 - 1.0 cm LVIDd: 4.50 cm 3.7 - 5.6 cm LVPWd: .80 cm 0.6 - 1.1 cm LVIDs: 3.00 cm 1.5 - 3.6 cm AO: 2.80 cm < 4.0 cm %FS: 33.30 cm >25 % LA volume: 64 Mitral Valve Peak E:1.13 m/sec Peak A:1.16 m/sec E/A Ratio:1 Peak E' Lat Ayo:6.04 cm/s Peak E' Med Ayo:6.34 cm/s E/E' Lat Ratio:18.7 E/E' Med Ratio:17.8 Tricuspid Valve TV Regurg Peak Grad: 23.00mmHg TV Regurg Peak Ayo: 2.41m/sec Updated by Omar Chow MD, [facility] on 03/28/2016 9:45:55 AM electronically signed on 03/28/2016 9:46:39 AM with status of [employer] Tobias: 1=Normal, 2=Hypokinesis, 3=Akinesis, 4=Dyskinesis, 5=Aneurysmal, 6=Hyperkinetic, X=Not Visualized (Blank)=Missing
--- NOTE | 2016-03-28 09:53 | Cardiology Consult Note ---
<Eriberto Ndiaye - Last Filed: 03/28/16 09:57> Date of Encounter: 03/28/16 Time of Encounter: 09:50 Assessment and Plan (1) AVNRT (AV sulaiman re-entry tachycardia) Status: Acute EKGs reviewed with Dr. Art Soto--appears to be AVNRT, rates as high as 200s-- resolved with Adenosine. Pt reports 2-3 similar episodes this past year that she was not evaluated for. Start Cardizem CD 120mg daily. Check echo to evaluate structure and function. Recommend outpt follow-up with Dr. Art Soto, as pt is a candidate for ablation. (2) Elevated troponin Status: Acute 4 troponins checked--2nd troponin borderline at 0.04, all others negative. Borderline troponin secondary to AVNRT. Nondiagnostic for ACS. Check echo to evaluate structure and function. Pt reported atypical right sided chest pain during AVNRT episode, resolved after adenosine. (3) Tobacco abuse Status: Acute Smoking cessation counseling given. Discussion w patient/family: The assessment and plan as outlined above was discussed with the patient and/or family members who expressed understanding and agreement. All questions were answered. Thank you for involving us in the care of your patient. Please call with any questions. I will discuss all the above with Dr. Bowers and make changes as necessary. History of Present Illness Consult date: 03/28/16 Requesting physician: Raine Barnes Consult reason: AVNRT Chief complaint: palpitations History of present illness: Ms. Gar is a 55 year old female with PMH of lung CA with left lobectomy, hypertension, tobacco use. According to patient she was out shopping yesterday as she was walking to her car she experienced increasing shortness of breath and lightheadedness with chest pressure in her right chest, palpitations. She had a scheduled appointment with her primary care physician. She drove to her PCP office, was given 4 baby aspirin and sent to the ER via EMS. According to ER records During transport it was noticed that the patient was in narrow complex tachycardia heart rate of 200 and systolic blood pressure of 89. Upon arrival to the emergency department the patient's heart rate was 210--AVNRT she was given 12 mg of adenosine which slowed her heart rate down to 100- sinus tachycardia. The patient denies any drug use. No excessive caffeine intake. Patient does states she has been under a lot of stress she is a current smoker. 4 troponins were checked--second troponin 0.04 and she was admitted. Her symptoms have resolved since adenosine was given, but she reports she keeps feeling like she is going to go into this rhythm again. Had 2-3 similar episodes the past year that she was not evaluated for. Past Med Surg Social Fam HX - Past Medical History Medical history: no medical history, cancer, COPD, other Psychiatric history: no psych history - Past Surgical History Surgical History: cholecystectomy, hysterectomy, other - Social History Smoking Status: Current every day smoker Smokeless Tobacco Status: No Alcohol use: none Drug use: none - Family History Mother Adopted: No Family Member Ethnicity: Non- Living Status: Still Living Hx Family Cardiac Disorders: No Hx Family Respiratory Disorders: No Hx Family Cancer: Yes Hx Family GI Disorders: No Hx Family Endocrine Disorder: No Hx Family Neuromuscular Disorders: No Hx Family Neurologic Disorders: Yes Hx Family HEENT Disorders: No Hx Family Autoimmune Disorders: No Father Adopted: No Family Member Ethnicity: Non- Hx Family Cardiac Disorders: No Hx Family Respiratory Disorders: No Hx Family Cancer: Yes Hx Family GI Disorders: No Hx Family Endocrine Disorder: No Hx Family Neuromuscular Disorders: No Hx Family Neurologic Disorders: No Hx Family HEENT Disorders: No Hx Family Autoimmune Disorders: No Medications and Allergies Diltiazem CD (24hr) [Cardizem CD] 120 mg PO DAILY #30 cap.er.24h 03/28/16 [Rx] Allergies Erythromycin Base Allergy (Verified 03/27/16 21:14) Rash All Systems Review: A 10-system review of systems was performed and is negative for pertinent findings except as documented above in the HPI. - Cardiovascular Cardiovascular: as per HPI, chest pain at rest, chest pain with exertion, dyspnea at rest, dyspnea on exertion, palpitations - Respiratory Respiratory: dyspnea Physical Examination Vital Signs, Last 4 Hours Temp Pulse Resp BP Pulse Ox 03/28/16 07:40 97.7 F 80 17 126/80 97 Vital Signs Temp Pulse Resp BP Pulse Ox 03/28/16 07:40 97.7 F 80 17 126/80 97 03/28/16 03:29 97.4 F L 80 15 127/79 97 03/27/16 22:41 97.8 F 80 16 137/84 96 03/27/16 22:01 16 139/96 03/27/16 20:59 0 F L 80 16 124/82 96 03/27/16 20:21 0 F L 81 16 145/75 98 03/27/16 20:09 81 16 149/91 98 03/27/16 19:01 83 18 129/71 98 03/27/16 18:00 97 18 127/87 98 03/27/16 17:59 99 118/75 03/27/16 16:50 103 18 131/85 98 03/27/16 15:48 97.3 F L 202 18 88/60 100 Intake and Output 03/27/16 03/28/16 03/28/16 23:59 07:59 15:59 Intake Total 1000 / 1000 237 / 237 Output Total 350 / 350 Balance 1000 / 1000 -113 / -113 Intake: IV Fluids 1000 / 1000 0.9 % Sodium Chloride 1, 1000 / 1000 000 ML @ 9999 mls/hr IV BOLUS ONE Rx#:[id number] Oral 237 / 237 Output: Urine 350 / 350 Other: # Voids 2 Weight 83.007 kg 83.234 kg Patient Weight 03/28/16 23:59 Weight 83.234 kg General: Conversant, No Apparent Distress HEENT: Atraumatic, Normocephaly, Mucus Membranes Moist Neck: No JVD, Normal carotid pulses Cardiac: Reg Rate and Rhythm, Normal S1 and S2, No Murmur Lungs: Normal Breath Sounds, No Wheeze, Rales, Rhonchi Neuro: Alert and responsive, No focal deficits noted Abdomen: Soft, Non-Tender Skin: No rashes noted on visualized skin Musculoskeletal: No Chest Wall Tenderness Extremities: No Clubbing, No Cyanosis, No Edema, Normal Pulses Results 03/28/16 01:00 03/28/16 01:00 Lab Results 03/28/16 03/28/16 03/28/16 01:00 01:00 01:00 WBC 10.8 Hgb 13.9 D Hct 42.0 Plt Count 209 Sodium 142 Potassium 4.4 Chloride 113 H Carbon Dioxide 23 BUN 12 Creatinine 0.65 Glucose 105 H Calcium 8.5 L Troponin I 0.03 03/28/16 06:49 WBC Hgb Hct Plt Count Sodium Potassium Chloride Carbon Dioxide BUN Creatinine Glucose Calcium Troponin I 0.03 Short CBC 03/28/16 03/27/16 Range/Units 01:00 16:30 WBC 10.8 9.8 (4.3-11.1) K/mcL Hgb 13.9 D 15.5 H (11.5-15.4) g/dL Hct 42.0 47.9 H (35.3-44.9) % Plt Count 209 264 (140-400) K/mcL Neutrophils # 6.7 5.9 (1.6-8.9) K/mcL BMP 03/28/16 03/27/16 Range/Units 01:00 16:30 Sodium 142 144 (136-145) mEq/L Potassium 4.4 3.7 (3.5-4.5) mEq/L Chloride 113 H 113 H (98-109) mEq/L Carbon Dioxide 23 24 (19-29) mEq/L BUN 12 14 (7-20) mg/dL Creatinine 0.65 0.72 (0.57-1.11) mg/dL Glucose 105 H 81 (70-99) mg/dL Calcium 8.5 L 9.3 (8.6-10.8) mg/dL Cardiac Enzymes 03/28/16 03/28/16 03/27/16 Range/Units 06:49 01:00 19:49 Troponin I 0.03 0.03 0.04 H* (0-0.03) ng/mL 03/27/16 Range/Units 16:30 Troponin I 0.01 (0-0.03) ng/mL Urine 03/27/16 Range/Units 16:10 Urine Color Yellow (Yellow) Urine Clarity Clear (Clear) Urine pH 6.5 (5.0-8.0) pH Units Ur Specific [place] 1.005 L (1.010-1.025) Urine Protein Negative (Neg-Trace) mg/dL Urine Glucose (UA) Normal (Normal) mg/dL Impressions Chest X-Ray 03/27/16 16:02 IMPRESSION: No acute cardiopulmonary process. D/ / Jimmy West MD / Jimmy West MD Interpreting Provider: Jimmy West MD Active Medications Acetaminophen (Tylenol) 650 mg PO Q6HR PRN PRN Reason: Mild Pain (1-3) Stop: 09/26/16 22:03 Heparin Sodium (Porcine) (Heparin) 5,000 unit SQ Q12HR THIAGO Stop: 09/27/16 06:01 Last Admin: 03/28/16 04:13 Dose: Not Given Naloxone HCl (Narcan) 0.4 mg IVP Q2MIN PRN PRN Reason: Opioid Reversal Stop: 09/26/16 22:03 Ondansetron HCl (Zofran) 4 mg IVP Q8HR PRN PRN Reason: Nausea And Vomiting Stop: 09/26/16 22:03 - Imaging and Cardiology Chest Xray: report reviewed Echo: pending - EKG Interpretation EKG results cardiology: personally reviewed (Initial AVNRT--then sinus tach after adenosine given.), other (12 hour tele AVG HR 79, sinus rhythm, no significant pauses or arrhythmias.) Consult Discharge Plan - Plan Additional Instructions: Follow-up with cardiology and her primary care provider as scheduled Referrals: Sunny Aguilar MD [Primary Care Provider] - 04/05/16 2:15 pm Adenike Allen CNP [Partnered Physician] - 04/12/16 4:00 pm Prescriptions: Diltiazem CD (24hr) [Cardizem CD] 120 mg PO DAILY #30 cap.er.24h <[email or web address] - Last Filed: 03/28/16 14:04> Date of Encounter: 03/28/16 Assessment and Plan Discussion w patient/family: The assessment and plan as outlined above was discussed with the patient and/or family members who expressed understanding and agreement. All questions were answered. Thank you for involving us in the care of your patient. Please call with any questions. History of Present Illness History of present illness: Ms. Gar is a 55 year old female All Systems Review: A 10-system review of systems was performed and is negative for pertinent findings except as documented above in the HPI. Physical Examination Vital Signs, Last 4 Hours Temp Pulse Resp BP Pulse Ox 03/28/16 11:11 97.8 F 87 18 143/52 95 Results 03/28/16 01:00 03/28/16 01:00 Lab Results 03/28/16 03/28/16 03/28/16 01:00 01:00 01:00 WBC 10.8 Hgb 13.9 D Hct 42.0 Plt Count 209 Sodium 142 Potassium 4.4 Chloride 113 H Carbon Dioxide 23 BUN 12 Creatinine 0.65 Glucose 105 H Calcium 8.5 L Troponin I 0.03 03/28/16 06:49 WBC Hgb Hct Plt Count Sodium Potassium Chloride Carbon Dioxide BUN Creatinine Glucose Calcium Troponin I 0.03 - Attending Attestation I examined this patient and my medical decision-making was reviewed with the HYBRID TESTER/PA/Advanced Practice Nurse/Resident Physician. I agree with the documented findings, disposition and treatment plan. Ms. Gar presented to the ER with SVT that converted with adenosine. She has been asymptomatic since then. Troponin was borderline elevated so she was admitted. Her Echo demonstrated demonstrated normal LV and RV function. No further ischemic workup is warranted. We will begin an AVN ebenezer and have her follow up with Dr. Art Soto for EP evaluation to consider RFA. Will sign off.
[2016-03-28] MEDS ORDERED: Diltiazem CD (24hr) 120 MG CAPSULE PO SCH (10:15)
[2016-03-28 11:11] VITALS: BP 143/52
--- NOTE | 2016-03-28 13:25 | Discharge Summary ---
Date of Encounter: 03/28/16 Time of Encounter: 11:30 - Discharge Diagnosis (1) AVNRT (AV sulaiman re-entry tachycardia) Priority: Primary Status: Resolved Comments: resolved with adenosine in the ED. cardiology was brought on board during this admission and started the patient on Cardizem. Echocardiogram unremarkable with ejection fraction of 60% and mild diastolic dysfunction. She will follow up with cardiology in 3-4 weeks for possible ablation. Remained stable throughout this admission. (2) DVT prophylaxis Priority: Primary Status: Acute Comments: Subcutaneous heparin (3) Elevated troponin Priority: Primary Status: Resolved Comments: Cardiology on board, do not suspect ACS. (4) Tobacco abuse Priority: Secondary Status: Chronic Comments: Declines smoking cessation counseling (5) Lung cancer Priority: Secondary Status: Chronic Qualifiers: Laterality: left Lung location: unspecified part of lung Qualified Code(s ): C34.92 - Malignant neoplasm of unspecified part of left bronchus or lung (6) Status post lobectomy of lung Priority: Secondary Status: Chronic - Discharge Medications Prescriptions: Diltiazem CD (24hr) [Cardizem CD] 120 mg PO DAILY #30 cap.er.24h Home Medications: Diltiazem CD (24hr) [Cardizem CD] 120 mg PO DAILY #30 cap.er.24h 03/28/16 [Rx] Allergies/Adverse Reactions: Allergies Erythromycin Base Allergy (Verified 03/27/16 21:14) Rash Procedures/tests Complete & Pending: Procedures Performed prior 72 hours Category Date Time Status EV echocardiogram Routine Y 03/28/16 22:39 Completed Date of admission: 03/27/16 21:38 Primary care physician: Sunny Aguilar MD Consults: 03/27/16 23:04 Consult to Cardiology [CONS] Routine Comment: Consulting Provider: Cardiology [facility] Reason for Consult: Elevated troponin- SVT Time Notified: 23:05 Call Completed: No Discharging clinician: Lila Cruz Anticipated date of discharge: 03/28/16 - Patient Status Disposition: Home, Self-Care Condition: Good Functional capacity at discharge: independent ambulation Overall status at discharge: patient is back to baseline - Discharge Instructions Follow Up With: Sunny Aguilar MD [Primary Care Provider] - 04/05/16 2:15 pm Adenike Allen CNP [Partnered Physician] - 04/12/16 4:00 pm Additional Instructions: Follow-up with cardiology and her primary care provider as scheduled - Diet and Activity Activity: increase activity as tolerated Diet: low fat, low cholesterol Hospital course: Ms. Gar is a 55 year old female with past medical history of lung cancer status post left lobectomy, hypertension, tobacco abuse. Patient stating she was shopping on the day of presentation as she was walking to her car, she experienced increasing shortness of breath, lightheadedness, chest pressure associated with increased shortness of breath. She states the pressure started in her throat and radiated to the right side of her chest. She drove herself to her primary care provider was given 4 baby aspirin and sent to the emergency department via EMS. Patient was noted to be in narrow complex tachycardia with heart rate of 200 with a initial systolic blood pressure of 89. She was given 12 mg of adenosine the emergency department and her heart rate slowed down. Patient denies any drug use. She does admits to glasses of caffeine on the day of presentation. Patient also encouraged [place] is increased stress and tobacco abuse. Chest x-ray unremarkable. Cardiology was brought on board while the patient was in the emergency department and recommended inpatient admission given that her second troponin was 0.04. Patient was admitted to the hospitalist service for further evaluation and management. Heart rate remained stable throughout this admission. She was started on Cardizem per cardiology. Echocardiogram revealing ejection fraction of 60% and moderate diastolic dysfunction. She was cleared for close outpatient follow-up with Dr. Art Soto for possible ablation. She was educated at length on smoking cessation and on refraining from caffeine usage. Repeat troponins negative 2. ACS not suspected. Patient denied chest pain or shortness of breath throughout this admission. She was discharged home in stable condition with close outpatient follow-up with cardiology recommended. ITS Impressions Chest X-Ray 03/27/16 16:02 IMPRESSION: No acute cardiopulmonary process. D/ / Jimmy West MD / Jimmy West MD Interpreting Provider: Jimmy West MD Echocardiogram impressions: Normal LV size and systolic function, LVEF 60%. Moderate left ventricular diastolic dysfunction. Normal right ventricular structure and function. Mildly dilated left atrium. Mild mitral regurgitation. No evidence of pulmonary hypertension. - Time Spent with Patient Total time spent providing and/or coordinating discharge services: - Constitutional Vitals: Temp Pulse Resp BP Pulse Ox 97.8 F 87 18 143/52 95 03/28/16 11:11 03/28/16 11:11 03/28/16 11:11 03/28/16 11:11 03/28/16 11:11 General appearance: Present: A&O X 3, pleasant, no acute distress, answers questions appropriately - Head Head exam: Present: atraumatic, normocephalic - Eye Eye exam: Present: PERRL, conjuntiva pink, sclera anicteric Pupils: Present: PERRL - Neck Neck exam general surgery: Present: supple, trachea midline. Absent: lymphadenopathy - Respiratory Respiratory exam: Present: decreased breath sounds. Absent: accessory muscle use, rales, respiratory distress, rhonchi, wheezes - Cardiovascular Cardiovascular exam: Present: RRR, +S1, +S2. Absent: diastolic murmur, gallop, rubs, systolic murmur - GI/Abdominal GI/Abdominal exam: Present: normal bowel sounds, soft, no peritoneal signs. Absent: distended, tenderness - Extremities Exam Extremities exam: Present: warm, radial pulses palpable and symetrical. Absent : calf tenderness, cyanotic, pedal edema - Neurological Exam Neurological exam: Present: alert, CN II-XII intact, normal gait, oriented X3, no focal deficits, strengths equal and symetr throughout. Absent: pronater drift, facial droop, speech deficit - Skin Skin exam: Present: dry, intact, normal color, warm
[2016-03-28] MEDS ORDERED: *HR* Adenosine 12 MG/4 ML VIAL IV ONE (13:55)
--- NOTE | 2016-03-28 14:21 | Electrocardiograph Report ---
[facility] Test Date: 2016-03-27 Pat Name: Cesilia Gar Department: 103 Room: 3B39 Gender: F Soil Analyst: JOSE : 1960 Requested By: Jeffery Mac Order Number: [id number] Reading MD: Art Soto Measurements Intervals [place] Rate: 108 P: 73 IN: 163 QRS: 60 QRSD: 84 T: 67 QT: 325 QTc: 388 Interpretive Statements SINUS TACHYCARDIA ABNORMAL RHYTHM ECG Electronically Signed On 03-28-16 14:20:19 EST by Art Soto
== END 2016-03-28 13:56 | disposition home or self-care (01) ==
LOC: 3BNU 15:46 → EMEROO 15:46 → SUATTDRO 21:38 → 3BNU 22:11
PROVIDERS: ADMIT Internal Medicine Sleep Medicine; ATTEND Nurse Practitioner Family

== ENCOUNTER 2017-06-10 13:30 | Observation (INO) ==
[2017-06-10] MEDS ORDERED: Aspirin 81 MG TAB.CHEW PO ONE (13:44)
--- NOTE | 2017-06-10 13:50 | Emergency Department Note ---
Disposition Clinical Impression: Chest pain Qualifiers: Chest pain type: unspecified Qualified Code(s): R07.9 - Chest pain, unspecified Disposition: Admitted As Inpatient Condition: Good Referrals: Sunny Aguilar MD [Primary Care Provider] - Forms: ED Satisfaction Letter Time of Disposition: 15:47 General Adult HPI - General Chief complaint: ED Chest Pain Stated complaint: CP Time Seen by Provider: 06/10/17 13:36 Source: patient Mode of arrival: ambulatory Limitations: no limitations Nursing Notes Reviewed: Yes Vital Signs Reviewed: Yes - History of Present Illness HPI Narrative: 56-year-old female with significant past medical history of SVT presented to the emergency Department chief complaint of chest pain and dizziness. Patient states she has had constant substernal chest pain that radiates into the left breast since . She denies nausea or vomiting but does disclose diaphoresis with these symptoms. She denies any fevers or shortness of breath. She denies having any stents or CABGs in the past. Patient has not done anything at home to help with the symptoms. Patient also states today she noticed she started feeling the room spinning around her. She states this never happened before. She denies feeling weak she just describes the room is spinning. Pain Scale: 5 - Related Data Previous Rx's Medication Instructions Recorded Diltiazem CD (24hr) [Cardizem CD] 120 mg PO DAILY #30 cap.er.24h 03/28/16 predniSONE [PredniSONE] 60 mg PO DAILY #15 tablet 11/05/16 Allergies Allergy/AdvReac Type Severity Reaction Status Date / Time Erythromycin Base Allergy Rash Verified 03/27/16 21:14 All systems ED: reviewed and negative except as stated. Cardiovascular: Reports: chest pain Neurological: Reports: headache, vertigo Past Medical History - Past Medical History Attestation: Yes The following information was validated with the patient. Medical history: Reports: cancer, COPD, SVT, other Surgical history: Reports: cholecystectomy, hysterectomy, other Psychiatric history: Reports: no psych history - Social History Smoking Status: Former smoker Smokeless Tobacco Status: No Alcohol use: Reports: none Drug use: Reports: none Physical Exam - General Limitations: no limitations General appearance: alert, in no apparent distress - Head Head exam: atraumatic, normocephalic, normal inspection - Eye Eye exam: Present: normal appearance, PERRL, EOMI. Absent: scleral icterus, conjunctival injection - ENT ENT exam: normal exam, mucous membranes moist - Neck Neck exam: Present: normal inspection, full ROM. Absent: tenderness, meningismus - Chest Chest inspection: Present: normal inspection, symmetric chest wall rise. Absent : tenderness, rash - Respiratory Respiratory exam: Present: normal lung sounds bilaterally. Absent: respiratory distress, wheezes - Cardiovascular Cardiovascular exam: Present: regular rate, normal rhythm, normal heart sounds - Abdominal Exam Abdominal exam: Present: soft, Non-Tender. Absent: distention, guarding, rebound - Extremities Exam Extremities exam: Present: normal inspection, full ROM - Neurological Exam Neurological exam: Present: alert, oriented X3, CN II-XII intact. Absent: motor sensory deficit - Psychiatric Psychiatric exam: Present: normal affect, normal mood - Skin Skin exam: Present: warm, intact Course Course Narrative: 56-year-old female presenting with chest pain and vertigo. Patient states the pain is constant since . Patient is alert and oriented 3 with stable vital signs. No history of stents or CABG. Does have history of SVT. We will obtain cardiac workup including EKG, troponin and chest x-ray. We will also provide the patient with meclizine for her vertigo. Disposition pending results. Patient agrees with this plan. - Reevaluation(s) Reevaluation #1: All of patient's labs within normal limits. Patient's pain completely resolved after nitroglycerin. We will plan to admit the patient this time for chest pain workup. She is alert and oriented 3 and room stable vital signs. She agrees to this plan. I spoke with the hospitalist industry operations investigator Dr. Yu who agrees to accept the patient at this time. Vital Signs Temperature 97.9 F 06/10/17 13:31 Pulse Rate 85 06/10/17 13:31 Respiratory Rate 18 06/10/17 13:31 Blood Pressure 161/94 06/10/17 13:31 O2 Sat by Pulse Oximetry 99 06/10/17 13:31 Temperature 97.9 F 06/10/17 13:31 Pulse Rate 75 06/10/17 15:29 Respiratory Rate 16 06/10/17 15:29 Blood Pressure 122/25 06/10/17 15:29 O2 Sat by Pulse Oximetry 95 06/10/17 15:29 Oxygen Delivery Oxygen Delivery Room Air Medical Decision Making - Medical Records Medical records reviewed: Yes I reviewed the patient's medical records. - Lab Data Lab results reviewed: Yes I reviewed the patient's lab results. Result diagrams: 06/10/17 13:50 06/10/17 13:50 Lab Results 06/10/17 06/10/17 Range/Units 13:50 13:50 WBC 11.5 H (4.3-11.1) K/mcL RBC 5.47 H (3.82-4.97) M/mcL Hgb 15.7 H (11.5-15.4) g/dL Hct 48.5 H (35.3-44.9) % MCV 88.7 (83.0-100.0) fL MCH 28.7 (28.0-33.3) pg MCHC 32.4 (31.6-35.5) g/dL RDW 13.2 (11.5-14.5) % Plt Count 308 (140-400) K/mcL MPV 11.8 (9.4-12.4) fL Immature Gran % 0.6 (0-4) % Seg Neutrophils % 68.0 % Lymphocytes % 23.8 % Monocytes % 6.6 % Eosinophils % 0.7 % Basophils % 0.3 % Neutrophils # 7.8 (1.6-8.9) K/mcL Lymphocytes # 2.7 (0.6-4.6) K/mcL Monocytes # 0.8 (0.0-1.3) K/mcL Eosinophils # 0.1 (0.0-0.6) K/mcL Basophils # 0.0 (0.0-0.2) K/mcL Sodium 140 (136-145) mEq/L Potassium 3.8 (3.5-5.1) mEq/L Chloride 105 (98-107) mEq/L Carbon Dioxide 27 (23-29) mEq/L BUN 13 (6-20) mg/dL Creatinine 0.65 (0.60-1.20) mg/dL Est GFR ( Amer) > 60 (> 60) Est GFR (Non-Af Amer) > 60 (> 60) BUN/Creatinine Ratio 20 (6-26) Glucose 99 (70-105) mg/dL Calculated Osmolality 290 (280-300) Calcium 9.9 (8.6-10.3) mg/dL Troponin I < 0.03 (< 0.04) ng/mL - Radiology Data Radiology results reviewed: Yes I reviewed the patient's radiology results. Chest X-Ray 06/10/17 13:44 IMPRESSION: No acute cardiopulmonary process. D/ / 06/10/2017 14:17:08 Pratik Meyer MD / Heidi Everett Interpreting Provider: Pratik Meyer MD - EKG Data EKG #1 EKG attestation: Yes I reviewed and interpreted this EKG. EKG results narrative: Sinus rhythm. 74 bpm. NE interval 167, QRS 82, QTC 407. No signs of acute ST segment elevation or ischemia. Compared to previous EKG completed on 2016 no significant changes noted
[2017-06-10] MEDS: Nitroglycerin 0.4 MG TAB.SUBL SL ONE ×2 (13:57→14:02)
--- NOTE | 2017-06-10 14:32 | Emergency Department Note ---
START Narrative - START START: I examined this patient and my medical decision-making was reviewed with the Resident Physician. I agree with the documented findings, disposition and treatment plan as described except to the extent set forth below. 56-year-old female presented to the emergency room for dizziness associated with chest pain. Some of the chest pain was dull and pressure-like and some sharp. She has no documented history of any coronary disease. Patient needs to be admitted for ACS rule out and cardiology evaluation. Her EKG does not show any acute findings. No ST segment elevations.
[2017-06-10 14:33] LABS: BUN/Creatinine Ratio 20 (6-26); Blood Urea Nitrogen 13 mg/dL (6-20); Calcium 9.9 mg/dL (8.6-10.3); Carbon Dioxide 27 mEq/L (23-29); Chloride 105 mEq/L (98-107); Glucose 99 mg/dL (70-105); Osmolality,Calculated 290 (280-300); Potassium 3.8 mEq/L (3.5-5.1); Sodium 140 mEq/L (136-145); Troponin I < 0.03 ng/mL (< 0.04); eGFR For African Americans > 60 (> 60); eGFR For Non-African Americans > 60 (> 60)
[2017-06-10 15:12] LABS: Basophils % 0.3 %; Eosinophils # 0.1 K/mcL (0.0-0.6); Eosinophils % 0.7 %; Hematocrit 48.5 % (35.3-44.9); Hemoglobin 15.7 g/dL (11.5-15.4); Immature Granulocytes % 0.6 % (0-4); Lymphocytes # 2.7 K/mcL (0.6-4.6); Lymphocytes % 23.8 %; Mean Corpuscular HGB Conc 32.4 g/dL (31.6-35.5); Mean Corpuscular Hemoglobin 28.7 pg (28.0-33.3); Mean Corpuscular Volume 88.7 fL (83.0-100.0); Mean Platelet Volume 11.8 fL (9.4-12.4); Monocytes # 0.8 K/mcL (0.0-1.3); Monocytes % 6.6 %; Neutrophils # 7.8 K/mcL (1.6-8.9); Platelet Count 308 K/mcL (140-400); Red Blood Count 5.47 M/mcL (3.82-4.97); Red Cell Distribution Width 13.2 % (11.5-14.5)
[2017-06-10] MEDS ORDERED: Naloxone 0.4 MG/ML INJ IVP PRN (16:22)
[2017-06-10] MEDS ORDERED: Acetaminophen 325 MG TABLET PO PRN (16:22)
[2017-06-10] MEDS ORDERED: *HR* HYDROcodone/Acet 5/325 mg TABLET PO PRN (16:22)
--- NOTE | 2017-06-10 16:34 | Internal Med History&Physical ---
<Raine Barnes - Last Filed: 06/10/17 16:41> Date of Encounter: 06/10/17 Time of Encounter: 16:30 Assessment and Plan (1) Chest pain Current visit: Yes Status: Acute 1 patient presented with midsternal chest pressure radiating to her left chest denies any palpitations pain was 5 out of 10 relieved with nitroglycerin. Troponins are negative EKG with no ST-T wave abnormalities we will continue trend troponins Continuous cardiac monitoring Consult cardiology-I did speak with Dr. Shine who will see patient in the a.m. 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 Gar is a 56 year old female past medical history of AV sulaiman reentry tachycardia, lung cancer with left upper lobectomy. According to patient she has been experiencing midsternal chest pressure that she describes as squeezing radiating to her left breast which started on . There were no aggravating or relieving factors. She denies any nausea vomiting or shortness of breath however she did experience some diaphoresis as well as vertigo. She denies any palpitations. She did have a cardiac stress test several years ago however she does not know the results-denies any cardiac catheterization. She presented to [facility] ER with the above complaints, her chest pain on presentation was 5 out of 10 she was given nitroglycerin which did relieve her pain. EKG with no ST-T wave abnormalities. Troponin was negative. Chest x-ray with no acute process. The patient has been admitted for further work up evaluation. Presently patient denies any chest pain she is in sinus rhythm and is hemodynamically stable. I did review this case with Dr. Wick who agrees to plan Past Med Surg Social Fam HX - Past Medical History Medical history: cancer, COPD, SVT, other Psychiatric history: no psych history - Past Surgical History Surgical History: cholecystectomy, hysterectomy, other - Social History Smoking Status: Former smoker Smokeless Tobacco Status: No Alcohol use: none Drug use: none - Family History Mother Adopted: No Family Member Ethnicity: Non- Living Status: Still Living Hx Family Cardiac Disorders: No Hx Family Respiratory Disorders: No Hx Family Cancer: Yes Hx Family GI Disorders: No Hx Family Endocrine Disorder: No Hx Family Neuromuscular Disorders: No Hx Family Neurologic Disorders: Yes Hx Family HEENT Disorders: No Hx Family Autoimmune Disorders: No Father Adopted: No Family Member Ethnicity: Non- Hx Family Cardiac Disorders: No Hx Family Respiratory Disorders: No Hx Family Cancer: Yes Hx Family GI Disorders: No Hx Family Endocrine Disorder: No Hx Family Neuromuscular Disorders: No Hx Family Neurologic Disorders: No Hx Family HEENT Disorders: No Hx Family Autoimmune Disorders: No Internal Medicine - H&P: Meds Albuterol Sulfate [Ventolin Hfa] 2 puff IH Q4-6H PRN 06/10/17 [History] Diltiazem CD (24hr) [Cardizem CD] 240 mg PO DAILY 06/10/17 [History] 3 Allergy/AdvReac Type Severity Reaction Status Date / Time Erythromycin Base Allergy Rash Verified 06/10/17 15:52 All Systems PM: A 10-system review of systems was performed and is negative for pertinent findings except as documented above in the HPI. - Constitutional Constitutional: no chills, no fever(s), no night sweats - EENT Eyes: no change in vision, no discharge, no pain, no photophobia Nose, mouth and throat: no dysphagia, no nasal discharge, no neck pain, no sore throat - Cardiovascular Cardiovascular ROS IM: chest pain, diaphoresis - Respiratory Respiratory: no cough, no dyspnea, no wheezing, no excessive phlegm production - Gastrointestinal Gastrointestinal: no abdominal pain, no diarrhea, no hematemesis, no hematochezia, no melena, no nausea, no vomiting - Genitourinary Genitourinary: no change in urinary stream, no dysuria, no flank pain, no hematuria - Musculoskeletal Musculoskeletal ROS IM: no numbness, no tingling - Integumentary Integumentary IM: no rash, no unusual bruising - Neurological Neurological ROS: vertigo - Hematologic/Lymphatic Hematologic/Lymphatic: no easy bruising - Constitutional Vitals: Temp Pulse Resp BP Pulse Ox 97.8 F 68 16 138/63 97 06/10/17 16:20 06/10/17 16:20 06/10/17 16:20 06/10/17 16:20 06/10/17 16:20 General appearance: Present: A&O X 3 - Head Head exam: Present: atraumatic, normocephalic - Eye Eye exam: Present: PERRL, conjuntiva pink, sclera anicteric Pupils: Present: PERRL - Neck Neck exam general surgery: Present: supple, trachea midline. Absent: lymphadenopathy - Respiratory Respiratory exam: Present: CTAB. Absent: accessory muscle use, rales, rhonchi, wheezes - Cardiovascular Cardiovascular exam: Present: RRR, +S1, +S2. Absent: diastolic murmur, gallop, rubs, systolic murmur - GI/Abdominal GI/Abdominal exam: Present: normal bowel sounds, soft, no peritoneal signs. Absent: distended, tenderness - Extremities Exam Extremities exam: Present: warm, radial pulses palpable and symmetrical. Absent : calf tenderness, cyanotic, pedal edema - Neurological Exam Neurological exam: Present: CN II-XII intact, oriented X3, no focal deficits. Absent: pronater drift, facial droop, speech deficit - Skin Skin exam: Present: dry, intact Internal Med - H&P Results - Labs CBC & Chem 7: 06/10/17 13:50 06/10/17 13:50 - EKG Data EKG shows normal: sinus rhythm - EKG Data Prior EKG available for review: yes When compared to previous EKG: there is no significant change - Diagnostic Studies Other Images Additional comments: Chest X-Ray 06/10/17 13:44 IMPRESSION: No acute cardiopulmonary process. D/ / 06/10/2017 14:17:08 Pratik Meyer MD / Heidi Everett Interpreting Provider: Pratik Meyer MD <Shyam Yu - Last Filed: 06/11/17 11:05> Date of Encounter: 03/19/18 Internal Medicine - H&P: HPI History of present illness: Ms. Gar is a 56 year old female All Systems PM: A 10-system review of systems was performed and is negative for pertinent findings except as documented above in the HPI. - Constitutional Vitals: Temp Pulse Resp BP Pulse Ox 98.0 F 76 16 116/76 95 06/11/17 06:45 06/11/17 06:45 06/11/17 06:45 06/11/17 06:45 06/11/17 06:45 Internal Med - H&P Results - Labs CBC & Chem 7: 06/11/17 02:17 06/11/17 02:17 Labs: Short CBC 06/11/17 Range/Units 02:17 WBC 11.1 (4.3-11.1) K/mcL Hgb 13.7 D (11.5-15.4) g/dL Hct 41.9 (35.3-44.9) % Plt Count 259 (140-400) K/mcL Neutrophils # 7.2 (1.6-8.9) K/mcL BMP 06/11/17 02:17 Sodium 142 Potassium 4.0 Chloride 108 H Carbon Dioxide 26 BUN 21 H Creatinine 0.65 Glucose 137 H Calcium 9.2 Cardiac Enzymes 06/10/17 06/11/17 Range/Units 19:39 02:17 Troponin I < 0.03 < 0.03 (< 0.04) ng/mL - Attending Attestation My signature below is to certify that this patient is under my care and that I, or nurse practitioner, or a physician's family and divorce legal assistant working with me, has a face-to -face encounter with this patient.
[2017-06-11 02:43] LABS: Basophils % 0.2 %; Eosinophils # 0.2 K/mcL (0.0-0.6); Eosinophils % 1.4 %; Hematocrit 41.9 % (35.3-44.9); Immature Granulocytes % 0.9 % (0-4); Immature Platelets 6.1 % (1.1-6.1); Lymphocytes # 2.7 K/mcL (0.6-4.6); Lymphocytes % 24.1 %; Mean Corpuscular HGB Conc 32.7 g/dL (31.6-35.5); Mean Corpuscular Hemoglobin 28.7 pg (28.0-33.3); Mean Corpuscular Volume 87.8 fL (83.0-100.0); Mean Platelet Volume 11.2 fL (9.4-12.4); Monocytes # 0.9 K/mcL (0.0-1.3); Monocytes % 8.5 %; Neutrophils # 7.2 K/mcL (1.6-8.9); Platelet Count 259 K/mcL (140-400); Red Blood Count 4.77 M/mcL (3.82-4.97); Red Cell Distribution Width 13.5 % (11.5-14.5); Segmented Neutrophils % 64.9 %
[2017-06-11 02:50] LABS: Hemoglobin 13.7 g/dL (11.5-15.4)
[2017-06-11 03:04] LABS: BUN/Creatinine Ratio 32 (6-26); Blood Urea Nitrogen 21 mg/dL (6-20); Carbon Dioxide 26 mEq/L (23-29); Chloride 108 mEq/L (98-107); Sodium 142 mEq/L (136-145)
[2017-06-11 03:05] LABS: Calcium 9.2 mg/dL (8.6-10.3); Chol/HDL Ratio 5.3 (0-4.9); Cholesterol 180 mg/dL (< 200); Glucose 137 mg/dL (70-105); HDL Cholesterol 34 mg/dL (40-59); LDL Cholesterol,Calculated 99 mg/dL (0-99); Magnesium 1.8 mg/dL (1.6-2.6); Osmolality,Calculated 299 (280-300); Triglycerides 234 mg/dL (< 150); eGFR For African Americans > 60 (> 60); eGFR For Non-African Americans > 60 (> 60)
[2017-06-11] MEDS ORDERED: *HR* Enoxaparin 40 MG/0.4 ML SYRINGE SQ SCH (07:00)
--- NOTE | 2017-06-11 08:31 | Cardiology Consult Note ---
Date of Encounter: 06/11/17 Time of Encounter: 08:00 Assessment and Plan (1) Chest pain Current Visit: Yes Status: Acute Atypical chest pain. No ST/T wave abnormalities noted. Troponin negative x3. Reports stress test many years ago--reportedly negative. Recommend nuclear stress test to r/o ischemia. Further recommendations to follow. Qualifiers: Chest pain type: precordial pain Qualified Code(s): R07.2 - Precordial pain (2) Supraventricular tachycardia Current Visit: No Status: Acute Hx of SVT--dx 2016. Controlled with CCB. Follows with Dr. Soto as outpatient. (3) Lung cancer Current Visit: No Status: Chronic s/p lobectomy in 2014. Reports in remission. Qualifiers: Laterality: left Lung location: unspecified part of lung Qualified Code(s ): C34.92 - Malignant neoplasm of unspecified part of left bronchus or lung Discussion w patient/family: The assessment and plan as outlined above was discussed with the patient and/or family members who expressed understanding and agreement. All questions were answered. Thank you for involving us in the care of your patient. Please call with any questions. The patient will be discussed and reviewed with Dr. Bashir; changes to be made accordingly. History of Present Illness Consult date: 06/11/17 Requesting physician: Raine Barnes Consult reason: Chest pain Chief complaint: Chest pain History of present illness: Ms. Gar is a 56 year old female with PMHx significant for lung CA s/p lobectom, nicotine dependence, and SVT who presented to the ED with complaints of chest discomfort. Reports headache and chest pain started on and have been constant; discomfort described as midsternal pressure with associated "stabbing" pains at left side of chest. Reports associated right scapular and neck discomfort. Symptoms occurred at rest. Reports symptom improvement in ED after given NTG tabs. Upon arrival to ED, troponin negative. No ischemic changes were noted on ECG. Prior CV testing: TTE 03/28/16: LVEF 60%, moderate LVDD, mildly dilated LA, mild MR, normal wall motion Past Med Surg Social Fam HX - Past Medical History Attestation: Yes The following information was validated with the patient. Source: patient Medical history: cancer, COPD, SVT, other Psychiatric history: no psych history - Past Surgical History Surgical History: cholecystectomy, hysterectomy, other - Social History Smoking Status: Current some day smoker Packs per day: 1-2 ppd x38 + years Smokeless Tobacco Status: No Alcohol use: none Drug use: none - Family History Mother Adopted: No Family Member Ethnicity: Non- Living Status: Still Living Age at : 80 Cause of : ovarian cancer Hx Family Cardiac Disorders: No Hx Family Respiratory Disorders: No Hx Family Cancer: Yes Hx Family GI Disorders: No Hx Family Endocrine Disorder: No Hx Family Neuromuscular Disorders: No Hx Family Neurologic Disorders: Yes Hx Family HEENT Disorders: No Hx Family Autoimmune Disorders: No Father Adopted: No Family Member Ethnicity: Non- Hx Family Cardiac Disorders: No Hx Family Respiratory Disorders: No Hx Family Cancer: Yes Hx Family GI Disorders: No Hx Family Endocrine Disorder: No Hx Family Neuromuscular Disorders: No Hx Family Neurologic Disorders: No Hx Family HEENT Disorders: No Hx Family Autoimmune Disorders: No Medications and Allergies Albuterol Sulfate [Ventolin Hfa] 2 puff IH Q4-6H PRN 06/10/17 [History] Diltiazem CD (24hr) [Cardizem CD] 240 mg PO DAILY 06/10/17 [History] 3 Allergy/AdvReac Type Severity Reaction Status Date / Time Erythromycin Base Allergy Rash Verified 06/10/17 15:52 All Systems Review: The remainder of the systems were reviewed and are negative - Cardiovascular Cardiovascular: as per HPI Physical Examination Vital Signs, Last 4 Hours Temp Pulse Resp BP Pulse Ox 06/11/17 06:45 98.0 F 76 16 116/76 95 General: Conversant, No Apparent Distress HEENT: Atraumatic, Normocephaly, Mucus Membranes Moist Neck: No JVD, Normal carotid pulses Cardiac: Reg Rate and Rhythm, Normal S1 and S2, No Murmur Lungs: Normal Breath Sounds, No Wheeze, Rales, Rhonchi Neuro: Alert and responsive, No focal deficits noted Abdomen: Soft, Non-Tender Skin: No rashes noted on visualized skin Musculoskeletal: No Chest Wall Tenderness Extremities: No Clubbing, No Cyanosis, No Edema, Normal Pulses Results 06/11/17 02:17 06/11/17 02:17 Lab Results 06/10/17 06/11/17 06/11/17 19:39 02:17 02:17 WBC 11.1 Hgb 13.7 D Hct 41.9 Plt Count 259 Sodium Potassium Chloride Carbon Dioxide BUN Creatinine Glucose Calcium Magnesium Troponin I < 0.03 < 0.03 06/11/17 02:17 WBC Hgb Hct Plt Count Sodium 142 Potassium 4.0 Chloride 108 H Carbon Dioxide 26 BUN 21 H Creatinine 0.65 Glucose 137 H Calcium 9.2 Magnesium 1.8 Troponin I Active Medications Acetaminophen (Tylenol) 650 mg PO Q6HR PRN PRN Reason: Mild Pain/Fever Stop: 12/10/17 16:23 Hydrocodone Bitart/Acetaminophen (Equinunk 5-325 Mg) 1 tab PO Q6HR PRN PRN Reason: Moderate Pain Stop: 12/10/17 16:23 Albuterol Sulfate (Albuterol Inhaler) 2 puff IH Q4H PRN PRN Reason: Shortness Of Breath Stop: 12/10/17 16:27 Aspirin (Aspirin) 81 mg PO DAILY THIAGO Stop: 12/11/17 09:01 Diltiazem HCl (Cardizem Cd) 240 mg PO DAILY THIAGO Stop: 12/11/17 09:01 Enoxaparin Sodium (Lovenox) 40 mg SQ 0700 THIAGO PRN Reason: Protocol Stop: 12/11/17 07:01 Last Admin: 06/11/17 06:15 Dose: 40 mg Naloxone HCl (Narcan) 0.4 mg IVP Q2MIN PRN PRN Reason: SEE COMMENTS Stop: 12/10/17 16:23 - Imaging and Cardiology Echo: report reviewed Other Results: 12 hour tele: avg HR=77 SR. No significant event noted. - EKG Interpretation EKG results cardiology: personally reviewed Consult Discharge Plan - Plan Referrals: Sunny Aguilar MD [Primary Care Provider] -
[2017-06-11] MEDS ORDERED: Diltiazem CD (24hr) 240 MG CAPSULE PO SCH (09:00)
[2017-06-11] MEDS ORDERED: Aspirin 81 MG TAB.CHEW PO SCH (09:00)
[2017-06-11] MEDS ORDERED: Regadenoson 0.4 MG/5 ML SYRINGE IVP ONE (12:42)
[2017-06-11 16:03] VITALS: BP 124/76
--- NOTE | 2017-06-11 16:39 | Discharge Summary ---
Orders not resulted at time of discharge: Pending orders 06/11/17 08:56 NM alistair perf SPECT multi [NM] Routine Date of Encounter: 06/11/17 Time of Encounter: 16:36 - Discharge Diagnosis (1) Chest pain Priority: Primary Status: Acute Comments: 1 Atypical CP r/o [facility] stress test show no ischemia cont CCB for SVT Follow up with PCP and cardiology as outpatient Qualifiers: Chest pain type: precordial pain Qualified Code(s): R07.2 - Precordial pain (2) Status post lobectomy of lung Priority: Secondary Status: Chronic Comments: 1 stable (3) AVNRT (AV sulaiman re-entry tachycardia) Priority: Secondary Status: Chronic Comments: cont CCB Hospital course: Ms. Gar is a 56 year old female ast medical history of AV sulaiman reentry tachycardia lung cancer with left upper lobectomy. Patient originally presented to [facility] ED after experiencing midsternal chest pressure that she described as squeezing radiating to left breast that started on she also was experiencing a headache there were no aggravating or relieving factors. She was given nitroglycerin in the ER which did relieve her pain. EKG with no ST-T wave abnormalities troponins were negative 3 chest x-ray with no acute process. Patient was seen by cardiology she was made nothing by mouth and underwent pharmalogical nuclear stress test which was negative for ischemia or infarct. Cardiology advised okay to discharge and follow-up as outpatient. Advised patient to follow-up with primary care physician as well as her own outside b2b sales since these providers know her past and can adjust medications as needed. She is hemodynamically stable at this time. Denies any chest pain. She is ready for discharge. Discharge discussed with: patient Time spent discussing smoking cessation with patient: 3 to 10 minutes - Time Spent with Patient Total time spent providing and/or coordinating discharge services: - Discharge Medications Home Medications: Albuterol Sulfate [Ventolin Hfa] 2 puff IH Q4-6H PRN 06/10/17 [History] Diltiazem CD (24hr) [Cardizem CD] 240 mg PO DAILY 06/10/17 [History] Allergies/Adverse Reactions: 3 Allergy/AdvReac Type Severity Reaction Status Date / Time Erythromycin Base Allergy Rash Verified 06/10/17 15:52 Date of admission: 06/10/17 15:51 Primary care physician: Sunny Aguilar MD Consults: 06/10/17 16:26 Consult to Cardiology [CONS] Routine Comment: Consulting Provider: Cardiology Vanessa Reason for Consult: CP Time Notified: 16:26 Call Completed: Yes Discharging clinician: Raine Barnes Anticipated date of discharge: 06/11/17 - Constitutional Vitals: Temp Pulse Resp BP Pulse Ox 98.0 F 94 18 124/76 94 06/11/17 16:03 06/11/17 16:03 06/11/17 16:03 06/11/17 16:03 06/11/17 16:03 General appearance: Present: A&O X 3 - Head Head exam: Present: atraumatic, normocephalic - Eye Eye exam: Present: PERRL, conjuntiva pink, sclera anicteric Pupils: Present: PERRL - Neck Neck exam general surgery: Present: supple, trachea midline. Absent: lymphadenopathy - Respiratory Respiratory exam: Present: CTAB. Absent: accessory muscle use, rales, rhonchi, wheezes - Cardiovascular Cardiovascular exam: Present: RRR, +S1, +S2. Absent: diastolic murmur, gallop, rubs, systolic murmur - GI/Abdominal GI/Abdominal exam: Present: normal bowel sounds, soft, no peritoneal signs. Absent: distended, tenderness - Extremities Exam Extremities exam: Present: warm, radial pulses palpable and symmetrical. Absent : calf tenderness, cyanotic, pedal edema - Neurological Exam Neurological exam: Present: CN II-XII intact, oriented X3, no focal deficits. Absent: pronater drift, facial droop, speech deficit - Skin Skin exam: Present: dry, intact - Patient Status Disposition: Home, Self-Care Condition: Good Functional capacity at discharge: independent ambulation Overall status at discharge: patient is back to baseline - Discharge Instructions Instructions: Chest Pain (DC) Follow Up With: Sunny Aguilar MD [Primary Care Provider] - Art Soto MD [Partnered Physician] - - Diet and Activity Activity: increase activity as tolerated Diet: low fat, low cholesterol
--- NOTE | 2017-06-13 00:02 | Electrocardiograph Report ---
[place] [id number] Test Date: 2017-06-10 Pat Name: Cesilia Gar Department: 102 Room: 3B Gender: F Edge Runner: Sendy : 1960 Requested By: April Gale Order Number: [id number] Reading MD: Luis Alberto Gacria DO Measurements Intervals [place] Rate: 74 P: 54 [place]: 167 QRS: 36 QRSD: 82 T: 53 QT: 380 QTc: 407 Interpretive Statements SINUS RHYTHM Electronically Signed On 06-13-2017 0:00:22 EDT by Luis Alberto Garcia DO
== END 2017-06-11 17:15 | disposition home or self-care (01) ==
LOC: EMEROO 13:30 → 3BNU 13:30
PROVIDERS: ADMIT Student in an Organized Health Care Education/Training Program; ATTEND Registered Nurse